=== PATIENT | male | born 1990 | race African-American/Black ===

== ENCOUNTER 2020-02-02 16:47 | Emergency (ER) | payer MEDICAID ==
[~2020-02-02] VITALS: Ht 175.3 cm; Wt 71.0 kg
[2020-02-02 16:59] VITALS: BP 141/64
== END 2020-02-02 18:05 | disposition home or self-care (01) ==
LOC: ER 16:47
DX: Z59.0 Homelessness (principal)
CPT/HCPCS: 99281; 99283

== ENCOUNTER 2020-02-03 14:20 | Emergency (ER) | payer MEDICAID ==
[~2020-02-03] VITALS: Ht 165.1 cm; Wt 60.0 kg
[2020-02-03 14:26] VITALS: BP 127/81
== END 2020-02-03 16:16 | disposition home or self-care (01) ==
LOC: ER 14:20
DX: Z04.89 Encounter for examination and observation for other specified reasons (principal); Z59.0 Homelessness
CPT/HCPCS: 99283

== ENCOUNTER 2020-11-01 18:06 | Emergency (ER) | payer MEDICAID ==
[~2020-11-01] VITALS: Ht 172.7 cm; Wt 85.0 kg
[2020-11-01 19:01] LABS: BASOPHILS % 0.9 % (0.0-2.0); EOSINOPHILS % 1.2 % (0.0-5.0); HEMATOCRIT. 43.3 % (42.0-52.0); HEMOGLOBIN. 14.5 g/dL (14.0-18.0); LYMPHOCYTES % 47.6 % (20.0-50.0); MEAN CORPUSCULAR HEMOGLOBIN 31.4 pg (28.0-32.0); MEAN CORPUSCULAR VOLUME 93.5 fL (80.0-94.0); MEAN PLATELET VOLUME 8.1 fl (7.4-10.4); MONOCYTES % 4.2 % (2.0-8.0); NEUTROPHILS % 46.1 % (40.0-76.0); PLATELET 276 x1000/uL (130-400); RED BLOOD CELL COUNT 4.63 mill/uL (4.7-6.1); RED CELL DISTRIBUTION WIDTH 13.3 % (11.6-14.6)
[2020-11-01 19:07] LABS: CHLORIDE 106 mEq/L (98-107)
[2020-11-01 19:11] LABS: ETHANOL BLOOD 66 mg/dL
[2020-11-01] MEDS ORDERED: TETANUS, DIPHTHERIA, PERTUSSIS VAC/PF 0.5ML (>7YR OLD) IM ONE (19:15)
[2020-11-01 21:44] LABS: *AMPHETAMINES SCREEN URINE NEGATIVE (NEGATIVE); *BARBITURATES SCREEN URINE NEGATIVE (NEGATIVE); *BENZODIAZEPINES SCREEN URINE NEGATIVE (NEGATIVE); *COCAINE SCREEN URINE NEGATIVE (NEGATIVE)
[2020-11-01 21:50] LABS: CANNABINOID URINE SCREEN NEGATIVE (NEGATIVE); METHADONE URINE SCREEN NEGATIVE (NEGATIVE); OPIATES URINE SCREEN NEGATIVE (NEGATIVE); PHENCYCLIDINE URINE SCREEN NEGATIVE (NEGATIVE)
[2020-11-01 22:10] VITALS: BP 106/65
== END 2020-11-01 22:16 | disposition home or self-care (01) ==
LOC: ER 18:06 → EDBD 18:06 → ER 22:16
DX: F10.129 Alcohol abuse with intoxication, unspecified (principal); Y90.3 Blood alcohol level of 60-79 mg/100 ml
CPT/HCPCS: 36415; 80053; 80305; 80320; 82962; 85025; 90471; 90715; 93005; 99284; 99285; G0480